=== PATIENT | female | born 1965 | race Caucasian/White ===

== ENCOUNTER → 2016-05-22 | Outpatient (CLI) | payer OTHER ==
--- NOTE | 2016-05-22 13:46 | MA ---
Diagnostic Digital Right Mammography Clinical History: 50-year-old female whose sister had breast cancer at age 50 (inflammatory breast ca rcinoma), and on a recent screening exam the patient was noted to have some possible developing clust ered microcalcifications in the upper-outer right breast. Technique: Digital mediolateral and spot magnification compression CC and true mediolateral views of the right breast were obtained and compared to previous studies dated May 07, 2016 and October 22, 2009. architectural distortion Breast Density: Type C. CAD Evaluation: Reviewed. Findings: The calcifications recently identified by Dr. Mesa are seen to better advantage, especiall y on the first of the spot magnification true mediolateral views. These are somewhat indistinct, robert tristin, do not have features suggesting definite milk of calcium, and given the patient's family history , an attempt should be made to stereotactically biopsy these. If this procedure is not technically ab le to be done, a surgical consultation and a hookwire needle localization would then need to be consi dered. Dr. Lazarus Mesa has reviewed this case and concurs with these observations and recommendatio ns. I have also discussed these findings and recommendations with the patient at the time of exam per formance. Impression: Mildly suspicious calcifications in the outer right breast (BI-RADS Category: 4A). Recommendation: Stereotactic-guided biopsy to differentiate DCIS from secretory adenosis associated w ith fibrocystic condition. Should the stereotactic biopsy attempt not be technically feasible, a hookwire needle localization an d surgical consultation for excisional biopsy would then be necessary. We provided the patient with additional information regarding the procedure, and a scheduling number at [facility]. A Follow-Up Required test result notification was sent via the [employer] service, 1:38:10 PM, 05/22/2016 , [employer] Message ID [id number].
== END ==
LOC: CIMAGING 12:51
DX: R92.1 Mammographic calcification found on diagnostic imaging of breast (principal); Z80.3 Family history of malignant neoplasm of breast
CPT/HCPCS: G0206

== ENCOUNTER → 2016-06-09 | Day surgery (SDC) | payer OTHER ==
[~2016-06-09] MED LIST: THROMBIN (RECOMBINANT) 5,000 UNIT VIAL TP ONE
--- NOTE | 2016-06-09 10:33 | MA ---
Diagnostic Digital Mammogram Right Breast Reason for examination: Follow up stereotactic right breast biopsy. Technique: Craniocaudal and true lateral views were obtained. Findings: The Suros marker is deployed at the biopsy site in the upper outer posterior right breast. No residual calcifications are seen at the location indicated on the diagnostic prebiopsy mammographi c examination May 22, 2016. Although there were no definite calcifications demonstrated in the sp ecimen study from the stereotactic examination, no residual calcifications on the post biopsy study i ndicates that they were probably sampled and may have been milk of calcium calcification. Findings were discussed with the patient. Impression: The Suros marker is deployed at the biopsy site. We will await pathologic results.
--- NOTE | 2016-06-09 17:42 | MA ---
Stereotactic Core Biopsy Right Breast History: Suspicious microcalcifications right breast. Crosscutting Measure #226: Current tobacco user; yes. Patient was told to speak with primary care alejandro davila about cessation counseling. Technique: Following informed consent (which included infection, bleeding and failure to obtain suffi cient specimens for diagnosis), the patient was placed prone on the stereotactic biopsy table and the breast was suspended through the open space in the table. A craniocaudal approach was employed. Th e microcalcifications to be targeted are quite faint. The skin was then prepped in sterile fashion. Local anesthesia was achieved with 1% lidocaine, lidocaine mixed with epinephrine, and Marcaine. A small skin pam was placed on the skin surface through which the 9-gauge Suros vacuum-assisted core b iopsy needle was advanced. Following confirmation of correct placement, core biopsy samples were obt ained. Specimen radiography demonstrates no microcalcifications. Retargeting was performed and mult iple additional core biopsies were obtained. No definite microcalcifications are identified in the s econd core biopsies. The second set of biopsies was complicated by hemorrhage, which was treated wit h 5000 units of thrombin successfully. A [employer] sterile clip was then placed in the biopsy bed. A si ngle mammographic image is obtained confirming the clip deployment. The needle was removed and hemos tasis was achieved with manual compression. The specimen was sent to the Laboratory. The patient wa s sent for post procedural mammogram to document clip placement and to look for postprocedural hemato ma. Evaluation of the post biopsy mammogram demonstrates no definite residual calcifications. She w as then discharged, without complication, with follow up instructions. Impression: No definite calcifications are seen in the obtained specimens, no residual microcalcific ations were noted in the post biopsy mammogram. Possibly the calcifications were milk of calcium vonda cification, which were not visualized in the stereotactic specimens. Preliminary results were discussed with the patient. We will await pathologic results.
== END | disposition home or self-care (01) ==
LOC: FIMAGING 08:38
PROVIDERS: ATTEND Family Medicine
PROC: 0HBT3ZX Excision of Right Breast, Percutaneous Approach, Diagnostic (ICD-10-PCS; principal; 2016-06-09)
PROC: BH00ZZZ Plain Radiography of Right Breast (ICD-10-PCS; 2016-06-09)
DX: D24.1 Benign neoplasm of right breast (principal); R92.0 Mammographic microcalcification found on diagnostic imaging of breast; N60.81 Other benign mammary dysplasias of right breast; F17.200 Nicotine dependence, unspecified, uncomplicated
CPT/HCPCS: G0206

== ENCOUNTER → 2016-09-10 | Outpatient (CLI) | payer OTHER | LOC: CIMAGING 13:22 | PROVIDERS: ATTEND Surgery | DX: R92.8 Other abnormal and inconclusive findings on diagnostic imaging of breast (principal) | CPT/HCPCS: G0206 ==

== ENCOUNTER → 2017-04-30 | Outpatient (CLI) | payer OTHER | LOC: CIMAGING 13:32 | PROVIDERS: ATTEND Family Medicine | DX: D24.1 Benign neoplasm of right breast (principal); Z80.3 Family history of malignant neoplasm of breast | CPT/HCPCS: G0204 ==

== ENCOUNTER → 2017-10-29 | Outpatient (CLI) | payer OTHER | LOC: CIMAGING 12:59 | PROVIDERS: ATTEND Family Medicine | DX: N60.91 Unspecified benign mammary dysplasia of right breast (principal); Z80.3 Family history of malignant neoplasm of breast ==

== ENCOUNTER → 2017-12-27 | Outpatient (CLI) | payer OTHER | LOC: CIMAGING 13:30 | PROVIDERS: ATTEND Surgery | DX: N60.91 Unspecified benign mammary dysplasia of right breast (principal) ==

== ENCOUNTER → 2018-02-08 | Day surgery (SDC) | payer OTHER ==
[~2018-02-08] MED LIST changes: +LIDOCAINE 1% 300 MG/30 ML SDV ONE; -THROMBIN (RECOMBINANT) 5,000 UNIT VIAL TP ONE
== END ==
LOC: FIMAGING 07:25
PROVIDERS: ATTEND Radiology Diagnostic Radiology
PROC: BH00ZZZ Plain Radiography of Right Breast (ICD-10-PCS; principal; 2018-02-08)
DX: R92.0 Mammographic microcalcification found on diagnostic imaging of breast (principal)

== ENCOUNTER → 2018-09-08 | Outpatient (CLI) | payer OTHER | LOC: CIMAGING 10:43 | PROVIDERS: ATTEND Family Medicine | DX: Z12.31 Encounter for screening mammogram for malignant neoplasm of breast (principal); Z85.3 Personal history of malignant neoplasm of breast ==